=== PATIENT | female | born 1985 | race Caucasian/White ===

== ENCOUNTER 2017-06-08 19:53 | Inpatient (IN) | payer OTHER ==
[2017-06-08] VITALS (7 sets, daily range): BP systolic 99–127; BP diastolic 62–77
[~2017-06-08] VITALS: Ht 165.1 cm; Wt 90.5 kg
[~2017-06-08 19:53] MED LIST: AMOXICILLIN500 M1 PO; COLACE100 MG PO; Motrin PO
[2017-06-08 20:48] LABS: EOSINOPHIL (%) 0.1 % (0-5); HEMATOCRIT 33.6 % (36.0-46.0); IMMATURE GRANULOCYTE (%) 0.6 % (0.0-0.7); IMMATURE GRANULOCYTE COUNT 0.1 K/uL; INSTRUMENT ABS NEUTROPHIL CT 9.5 K/uL; LYMPHOCYTE COUNT 1.5 K/uL (1.0-2.8); MCH 29.5 PG (29.0-34.0); MCHC 34.5 G/DL (30.0-36.0); MCV 85.5 FL (83-99); MEAN PLAT.VOLUME 9.2 uM^3 (9.5-12.4); MONOCYTE (%) 5.8 % (3-12); MONOCYTE COUNT 0.7 K/uL (0-0.8); NEUTROPHIL (%) 80.7 % (45-76); NEUTROPHIL COUNT 9.5 K/uL (1.8-6.4); PLATELET COUNT 187 K/uL (156-360); RBC DIS.WIDTH-CV 12.9 % (11.8-14.6); RBC DIS.WIDTH-SD 39.4 % (39-53); RED BLOOD COUNT 3.93 M/uL (3.80-5.20); WHITE BLOOD COUNT 11.8 K/uL (4.1-10.2)
[2017-06-09 00:45] VITALS: BP 110/72
[2017-06-09 07:02] LABS: EOSINOPHIL (%) 0.2 % (0-5); HEMATOCRIT 28.7 % (36.0-46.0); IMMATURE GRANULOCYTE (%) 0.5 % (0.0-0.7); INSTRUMENT ABS NEUTROPHIL CT 6.1 K/uL; LYMPHOCYTE COUNT 1.6 K/uL (1.0-2.8); MCH 30.9 PG (29.0-34.0); MCHC 35.9 G/DL (30.0-36.0); MCV 86.2 FL (83-99); MEAN PLAT.VOLUME 9.3 uM^3 (9.5-12.4); MONOCYTE (%) 7.5 % (3-12); MONOCYTE COUNT 0.6 K/uL (0-0.8); NEUTROPHIL (%) 72.9 % (45-76); NEUTROPHIL COUNT 6.1 K/uL (1.8-6.4); PLATELET COUNT 185 K/uL (156-360); RBC DIS.WIDTH-CV 13.3 % (11.8-14.6); RBC DIS.WIDTH-SD 40.9 % (39-53); RED BLOOD COUNT 3.33 M/uL (3.80-5.20); WHITE BLOOD COUNT 8.4 K/uL (4.1-10.2)
[2017-06-09 07:33] VITALS: BP 103/68
[2017-06-09 15:26] VITALS: BP 106/61
[2017-06-10 07:49] VITALS: BP 114/69
== END 2017-06-10 11:53 | disposition home or self-care (01) | DRG 775 ==
LOC: LDRP-OP 19:53 → 2WEST 19:54 → LDRP-OP 07-27 15:51
PROVIDERS: Advanced Practice Midwife
DX: O60.23X1 Term delivery with preterm labor, third trimester, fetus 1 (principal); E80.4 Gilbert syndrome; Z3A.37 37 weeks gestation of pregnancy; Z37.0 Single live birth
CPT/HCPCS: 85025; J2590; J7120